=== PATIENT | male | born 1965 | race Caucasian/White ===

== ENCOUNTER 2022-02-02 21:24 | Inpatient (IN) | payer OTHER ==
[~2022-02-02] VITALS: Ht 165.1 cm; Wt 65.8 kg
[~2022-02-02 21:24] MED LIST: AMLO5TAB4 PO; CALC667C PO; FOLI0.8T2 PO; SSREG SUBCUT
[2022-02-02 21:28] VITALS: BP_SYST 126
[2022-02-02 22:28] LABS: BASOPHILS # (AUTO) 0.1 K/uL (0.0-0.2); BASOPHILS % (AUTO) 1.2 % (0.0-2.0); EOSINOPHILS % (AUTO) 0.4 % (0.0-4.0); LYMPHOCYTES # (AUTO) 0.3 K/uL (1.0-5.5); LYMPHOCYTES % (AUTO) 4.8 % (20.5-51.5); MEAN CORPUSCULAR HEMOGLOBIN 32 pg (27-31); MEAN CORPUSCULAR HGB CONC 35 % (32-36); MEAN CORPUSCULAR VOLUME 91 fL (79.0-98.0); MONOCYTES # (AUTO) 0.4 K/uL (0.0-1.0); MONOCYTES % (AUTO) 5.6 % (1.7-9.3); NEUTROPHILS # (AUTO) 5.8 K/uL (1.8-7.7); PLATELET COUNT (AUTO) 146 K/uL (130-430); RED CELL DISTRIBUTION WIDTH 13.5 % (9.0-15.0); WHITE BLOOD COUNT (AUTO) 6.6 K/uL (4.8-10.8)
[2022-02-02 22:34] LABS: CREATININE 4.07 mg/dL (0.55-1.30); POTASSIUM 3.5 mmol/L (3.5-5.1)
[2022-02-02 22:35] LABS: HEMATOCRIT 19.1 % (36-54); HEMOGLOBIN 6.7 g/dL (14.0-18.0)
[2022-02-02 22:40] LABS: ALBUMIN 2.2 g/dL (3.4-4.8); TOTAL BILIRUBIN 0.2 mg/dL (0.0-1.0)
[2022-02-02] MEDS ORDERED: LIDOCAINE 1%, 20 ML MDV 20 ML ONE (22:40)
[2022-02-02] MEDS ORDERED: DIPH-TET-PERTUS Vaccine 0.5 ML VIAL (ADACEL) I.M. ONE (22:45)
[2022-02-02] MEDS ORDERED: LIDOCAINE MPF 1% 50 MG/5 ML AMP INJ ONE (22:45)
[2022-02-02] MEDS ORDERED: HYDROcodone/ACETAMIN 5-325 MG TAB (NORCO/ VICODIN) PO PRN (23:00)
[2022-02-02] MEDS ORDERED: ACETAMINOPHEN 325 MG TABLET PO PRN (23:00)
[2022-02-02] MEDS ORDERED: LORazepam 2 MG/ML VIAL IVP PRN (23:00)
[2022-02-02] MEDS ORDERED: HYDROcodone/ACETAMIN 10-325 MG TAB PO PRN (23:00)
[2022-02-02] MEDS ORDERED: INSULIN REGULAR, HUMAN 100 UNITS/ML, 10 ML VIAL (humuLIN R) SUBCUT PRN (23:00)
[2022-02-02] MEDS ORDERED: ONDANSETRON HCL 4 MG/2 ML VIAL IVP PRN (23:00)
[2022-02-02 23:19] LABS: INR 1.3 (0.80-1.20); PROTHROMBIN TIME 12.9 SECS (9.5-12.5)
[2022-02-03 02:24] VITALS: BP_SYST 156
[2022-02-03] MEDS ORDERED: NORMAL SALINE 5 ML DISP.SYRIN IVF SCH (06:00)
[2022-02-03] MEDS: NORMAL SALINE 5 ML DISP.SYRIN IVF SCH ×3 (06:00→22:25)
[2022-02-03 08:27] LABS: CALCIUM 8.6 mg/dL (8.4-11.0); CREATININE 4.56 mg/dL (0.55-1.30); PHOSPHORUS 3.3 mg/dL (2.7-4.5); POTASSIUM 3.4 mmol/L (3.5-5.1)
[2022-02-03] MEDS: CALCIUM ACETATE 667 MG CAP PO SCH ×3 (08:47→18:29)
[2022-02-03] MEDS: NEPHROVITE, (FOLIC ACID/VITAMIN B COMP W-C 1 TAB) PO SCH (08:48)
[2022-02-03] MEDS: amLODIPine BESYLATE 5 MG TABLET PO SCH (08:50)
[2022-02-03 10:36] LABS: BASOPHILS % (AUTO) 0.8 % (0.0-2.0); EOSINOPHILS # (AUTO) 0.1 K/uL (0.0-0.4); EOSINOPHILS % (AUTO) 2.4 % (0.0-4.0); HEMOGLOBIN 7.3 g/dL (14.0-18.0); LYMPHOCYTES # (AUTO) 0.5 K/uL (1.0-5.5); LYMPHOCYTES % (AUTO) 8.3 % (20.5-51.5); MEAN CORPUSCULAR HEMOGLOBIN 30 pg (27-31); MEAN CORPUSCULAR HGB CONC 34 % (32-36); MEAN CORPUSCULAR VOLUME 89 fL (79.0-98.0); MONOCYTES # (AUTO) 0.5 K/uL (0.0-1.0); MONOCYTES % (AUTO) 9.6 % (1.7-9.3); NEUTROPHILS # (AUTO) 4.3 K/uL (1.8-7.7); NEUTROPHILS % (AUTO) 78.9 % (40.0-70.0); PLATELET COUNT (AUTO) 126 K/uL (130-430); RED BLOOD CELL COUNT(AUTO) 2.42 MIL/uL (4.2-6.2); RED CELL DISTRIBUTION WIDTH 15.5 % (9.0-15.0); WHITE BLOOD COUNT (AUTO) 5.5 K/uL (4.8-10.8)
[2022-02-03 10:42] LABS: HEMATOCRIT 21.4 % (36-54)
[2022-02-03] MEDS ORDERED: D5W 1,000 ML IV PRN (11:00)
[2022-02-03] MEDS ORDERED: GLUCOSE (DEXTROSE) ORAL GEL -Adults PO PRN (11:00)
[2022-02-03] MEDS ORDERED: DEXTROSE 50%-WATER 50 ML DISP.SYRIN IVP PRN (11:00)
[2022-02-03] MEDS ORDERED: lisinopriL 20 MG TABLET PO ONE (11:30)
[2022-02-03] MEDS ORDERED: METOPROLOL TARTRATE 50 MG TABLET PO ONE (11:30)
[2022-02-03] MEDS ORDERED: NIFEdipine 30 MG TAB.ER.24 PO ONE (11:45)
[2022-02-03 12:59] VITALS: BP_SYST 150
[2022-02-03 16:17] VITALS: BP_SYST 157
[2022-02-03] MEDS: NIFEdipine 30 MG TAB.ER.24 PO SCH (19:48)
[2022-02-03 20:00] VITALS: BP_SYST 138
[2022-02-03] MEDS ORDERED: ATORVASTATIN 20 MG TABLET PO SCH (21:00)
[2022-02-03] MEDS: METOPROLOL TARTRATE 50 MG TABLET PO SCH (22:21)
[2022-02-03] MEDS: lisinopriL 20 MG TABLET PO SCH (22:22)
[2022-02-04] VITALS: BP_SYST 137
[2022-02-04] MEDS: NORMAL SALINE 5 ML DISP.SYRIN IVF SCH ×2 (06:32→14:00)
[2022-02-04 07:54] LABS: ALBUMIN 2.4 g/dL (3.4-4.8); CALCIUM 8.7 mg/dL (8.4-11.0); CREATININE 6.1 mg/dL (0.55-1.30); PHOSPHORUS 3.6 mg/dL (2.7-4.5); TOTAL BILIRUBIN 0.2 mg/dL (0.0-1.0)
[2022-02-04 08:02] VITALS: BP_SYST 145
[2022-02-04 08:17] LABS: POTASSIUM 3.8 mmol/L (3.5-5.1)
[2022-02-04] MEDS: METOPROLOL TARTRATE 50 MG TABLET PO SCH (09:00)
[2022-02-04] MEDS: NIFEdipine 30 MG TAB.ER.24 PO SCH (09:00)
[2022-02-04] MEDS: lisinopriL 20 MG TABLET PO SCH (09:00)
[2022-02-04] MEDS: NEPHROVITE, (FOLIC ACID/VITAMIN B COMP W-C 1 TAB) PO SCH (09:00)
[2022-02-04] MEDS: amLODIPine BESYLATE 5 MG TABLET PO SCH (09:00)
[2022-02-04] MEDS: CALCIUM ACETATE 667 MG CAP PO SCH ×3 (09:00→16:22)
[2022-02-04 09:58] LABS: BASOPHILS # (AUTO) 0.1 K/uL (0.0-0.2); BASOPHILS % (AUTO) 0.7 % (0.0-2.0); EOSINOPHILS # (AUTO) 0.2 K/uL (0.0-0.4); EOSINOPHILS % (AUTO) 2.4 % (0.0-4.0); HEMOGLOBIN 7.3 g/dL (14.0-18.0); LYMPHOCYTES # (AUTO) 0.5 K/uL (1.0-5.5); MEAN CORPUSCULAR HEMOGLOBIN 31 pg (27-31); MEAN CORPUSCULAR HGB CONC 34 % (32-36); MEAN CORPUSCULAR VOLUME 89 fL (79.0-98.0); MONOCYTES # (AUTO) 0.5 K/uL (0.0-1.0); MONOCYTES % (AUTO) 7.1 % (1.7-9.3); NEUTROPHILS # (AUTO) 6.2 K/uL (1.8-7.7); NEUTROPHILS % (AUTO) 82.8 % (40.0-70.0); PLATELET COUNT (AUTO) 146 K/uL (130-430); RED CELL DISTRIBUTION WIDTH 16.3 % (9.0-15.0); WHITE BLOOD COUNT (AUTO) 7.5 K/uL (4.8-10.8)
[2022-02-04 10:46] LABS: HEMATOCRIT 21.4 % (36-54)
[2022-02-04] MEDS ORDERED: LIP20 PO (11:15)
[2022-02-04] MEDS ORDERED: METO-442 PO (11:15)
[2022-02-04] MEDS ORDERED: NIFEdipine PO (11:15)
[2022-02-04] MEDS ORDERED: LISI20TA30 PO (11:15)
[2022-02-04 12:52] VITALS: BP_SYST 139
[2022-02-04 16:19] VITALS: BP_SYST 140
[2022-02-04] MEDS ORDERED: EPOETIN ALFA 10,000 UNITS/ML VIAL SUBCUT ONE (17:00)
[2022-02-04 18:43] VITALS: BP_SYST 140
== END 2022-02-04 20:33 | disposition home or self-care (01) | DRG 981 ==
LOC: SED 21:24 → SMU 22:47
PROVIDERS: ADMIT Preventive Medicine Preventive Medicine/Occupational Environmental Medicine; ATTEND Preventive Medicine Preventive Medicine/Occupational Environmental Medicine
PROC: 30233N1 Transfusion of Nonautologous Red Blood Cells into Peripheral Vein, Percutaneous Approach (ICD-10-PCS; principal; 2022-02-03)
PROC: 0XQ7XZZ Repair Left Upper Extremity, External Approach (ICD-10-PCS; 2022-02-03)
PROC: 5A1D70Z Performance of Urinary Filtration, Intermittent, Less than 6 Hours Per Day (ICD-10-PCS; 2022-02-04)
DX: T82.838A Hemorrhage due to vascular prosthetic devices, implants and grafts, initial encounter (principal); N18.6 End stage renal disease; E43 Unspecified severe protein-calorie malnutrition; I12.0 Hypertensive chronic kidney disease with stage 5 chronic kidney disease or end stage renal disease; E88.09 Other disorders of plasma-protein metabolism, not elsewhere classified; E83.51 Hypocalcemia; E11.65 Type 2 diabetes mellitus with hyperglycemia; Z20.822 Contact with and (suspected) exposure to COVID-19; Y83.8 Other surgical procedures as the cause of abnormal reaction of the patient, or of later complication, without mention of misadventure at the time of the procedure; D63.1 Anemia in chronic kidney disease; E11.22 Type 2 diabetes mellitus with diabetic chronic kidney disease; Z79.899 Other long term (current) drug therapy; Z91.018 Allergy to other foods; Y92.89 Other specified places as the place of occurrence of the external cause; Z99.2 Dependence on renal dialysis; Z68.24 Body mass index [BMI] 24.0-24.9, adult
CPT/HCPCS: 36415; 36430; 80048; 80053; 82962; 83735; 84100; 85025; 85610-TC; 85730-TC; 86886; 86900; 86901; 86920; 87081; 90715; 99285; J0885; J1815; J2001; J2060; P9021